=== PATIENT | female | born 1990 | race Caucasian/White ===

== ENCOUNTER 2017-02-02 12:41 | Emergency (ER) | payer BC ==
[~2017-02-02] VITALS: Ht 160 cm; Wt 54.4 kg
[~2017-02-02 12:41] MED LIST: DEPO-PROVE150 MG/1 M IM; NORCO 5-325 TA1 EACH PO; ONDANSETRON HCL8 MG PO
--- OUTSIDE RECORDS SUMMARY | 2017-02-02 12:45 | XMS ---
Demographics + + + | Address | [address] | | | [place] [address] | + + + | Preferred Language | Unknown | + + + | Marital Status | Unknown | + + + | Hindu Affiliation | Unknown | + + + | Race | Unknown | + + + | Ethnic Group | Unknown | + + + Author + + + | Author | [facility] | + + + | Organization | [facility] | + + + | Address | [address] | | | [place] [address] | + + + | Phone | | + + + Care Team Providers + + + + | Care Cna Per Diem Name | Role | Phone | + + + + Unavailable | Unavailable | + + + + PROBLEMS + + + + + + + + | Type | Condition | ICD9-CM | CAT01-TR | Onset | Condition | SNOMED | | | | Code | Code | Dates | Status | Code | + + + + + + + + | Assessment | Pneumonia | J18.9 | | Oct, | Active | [id number] | | | | | | 2016 | | | + + + + + + + + ALLERGIES + + + + +---------+ | Substance | Reaction | Event Type | Date | Status | + + + + +---------+ | N.K.D.A. | Unknown | Non Drug | Oct, | Unknown | | | | Allergy | | | + + + + +---------+ SOCIAL HISTORY No smoking Hx information available PLAN OF CARE + +---------+ | Activity | Details | + +---------+ +---+ | | +---+ + + + | Pending Test | X ray : Chest 2 views | + + + | | prn,Reason: | + + + VITAL SIGNS + + + + | Height | 61 in | 2016-11-15 | + + + + | Weight | 129.2 lbs | 2016-11-15 | + + + + | BMI | 24.41 kg/m2 | 2016-11-15 | + + + + | Temperature | 99.6 degrees Fahrenheit | 2016-11-15 | + + + + | Heart Rate | 108 /min | 2016-11-15 | + + + + | Blood pressure systolic | 112 mm Hg | 2016-11-15 | + + + + | Blood pressure diastolic | 73 mm Hg | 2016-11-15 | + + + + MEDICATIONS + + + + + + + +--------+ | Medicati | Instruct | Dosage | Frequenc | Start | End Date | Duration | Status | | on | ions | | y | Date | | | | + + + + + + + +--------+ | Azithrom | Orally | 2 | 24h | | | | Active | | ycin 250 | daily | tablets | | | | | | | MG | | q stat | | | | | | | | | then 1 | | | | | | | | | daily x | | | | | | | | | 4 days | | | | | | + + + + + + + +--------+ | Ventolin | Inhalati | 2 puffs | | 17 Apr, | | | Active | | HFA 108 | on every | | | 2016 | | | | | (90 | 4 hrs | | | | | | | | Base) | PRN | | | | | | | | MCG/ACT | wheezing | | | | | | | | | /SOB | | | | | | | + + + + + + + +--------+ | Rocephin | intramus | as | | 17 Apr, | 17 Apr, | | Active | | 1 GM | cularly | directed | | 2016 | 2016 | | | | | NOW | | | | | | | + + + + + + + +--------+ | Depo | | | | | | | Active | | Provera | | | | | | | | | IM | | | | | | | | + + + + + + + +--------+ RESULTS No Results PROCEDURES + + + + + | Procedure | Date Ordered | Related Diagnosis | Body Site | + + + + + | Ceftriaxone(Rocephi | November 15, 2016 | | | | n) 500mg/2ml | | | | + + + + + | INJECTION | November 15, 2016 | | | | INTRAMUSCULAR OR | | | | | SUBCUTANEOUS | | | | + + + + + | [facility] MED/CURRENT | November 15, 2016 | | | | MED MERGE | | | | + + + + + | Est Level III | November 15, 2016 | | | | Intermediate | | | | + + + + + | DOC MEDS VERIFIED | November 15, 2016 | | | | W/PT OR RE | | | | + + + + + IMMUNIZATIONS + + + + + | Vaccine | Route | Administration Date | Status | + + + + + | Ceftriaxzone(Roceph | IM Intramuscular | November 15, 2016 | Administered | | in)1gm | | | | + + + + +"
[2017-02-02] MEDS ORDERED: KETOROLAC TROME10 MG PO (14:12)
== END 2017-02-02 14:27 | disposition home or self-care (01) ==
LOC: ED 12:41
DX: N20.0 Calculus of kidney (principal); F17.200 Nicotine dependence, unspecified, uncomplicated; Z79.899 Other long term (current) drug therapy
CPT/HCPCS: 74176; 80053; 81001; 82150; 83690; 84703; 85025; 96361; 96374; 96375; 99284; J1885; J2405; J7030

== ENCOUNTER 2017-11-16 07:01 | Emergency (ER) | payer OTHER, BC ==
[~2017-11-16] VITALS: Ht 154.9 cm; Wt 60.3 kg
[~2017-11-16 07:01] MED LIST changes: +KETOROLAC TROME10 MG PO
[2017-11-16] MEDS ORDERED: IBUPROFEN200 MG PO (07:12)
[2017-11-16] MEDS ORDERED: NAPROSYN500 MG PO (08:15)
== END 2017-11-16 08:30 | disposition home or self-care (01) ==
LOC: ED 07:01
PROC: 2W3DX1Z Immobilization of Left Lower Arm using Splint (ICD-10-PCS; principal; 2017-11-16)
PROC: 2W3CX1Z Immobilization of Right Lower Arm using Splint (ICD-10-PCS; 2017-11-16)
DX: G56.03 Carpal tunnel syndrome, bilateral upper limbs (principal); M75.92 Shoulder lesion, unspecified, left shoulder; F17.200 Nicotine dependence, unspecified, uncomplicated
CPT/HCPCS: 29125; 73030; 99283

== ENCOUNTER 2020-04-02 19:13 | Emergency (ER) | payer SELFPAY ==
[~2020-04-02] VITALS: Ht 154.9 cm; Wt 61.2 kg
[~2020-04-02 19:13] MED LIST changes: +IBUPROFEN200 MG PO; +NAPROSYN500 MG PO; +ONDANSETRON ODT8 MG PO
[2020-04-02] MEDS ORDERED: ELIQUIS5 MG PO ×2 (22:55→23:13)
[2020-04-02] MEDS ORDERED: NORCO 5-325 TA1 EACH PO (22:55)
== END 2020-04-02 23:37 | disposition home or self-care (01) ==
LOC: ED 19:13
DX: I82.890 Acute embolism and thrombosis of other specified veins (principal); Z87.442 Personal history of urinary calculi; F17.200 Nicotine dependence, unspecified, uncomplicated; Z79.899 Other long term (current) drug therapy
CPT/HCPCS: 74177; 81001; 84703; 96361; 96375; 96376; 99284-25; J1170; J2405; J7030; Q9967

== ENCOUNTER 2020-10-15 03:05 | Emergency (ER) | payer OTHER ==
[~2020-10-15] VITALS: Ht 154.9 cm; Wt 62.0 kg
[~2020-10-15 03:05] MED LIST changes: +ELIQUIS5 MG PO; +FLUOXETINE HCL10 MG PO
--- OUTSIDE RECORDS SUMMARY | 2020-10-15 03:08 | XMS ---
PreManage Notification: JULIANA WYLIE [employer] Events No recent Security Events currently on file CRITERIA MET - [facility] - 2 Visits in 30 Days CARE PROVIDERS There are no care providers on record at this time. [facility] has no Care Guidelines for this patient. Jose Miguel VISIT COUNT (12 MO.) 3 [facility]3][facility]. TOTAL 3 NOTE: Visits indicate total known visits. ED/UCC VISIT TRACKING (12 MO.) 10/15/2020 03:05 [facility]3][facility] [place] TYPE: Emergency COMPLAINT: - ABDOMINAL AND RT SIDE PAIN 09/25/2020 16:26 [facility] [place] TYPE: Emergency COMPLAINT: - ABD PAIN DIAGNOSES: - Personal history of urinary calculi - Other intermediate school teacher (current) drug therapy - Nicotine dependence, unspecified, uncomplicated - Right lower quadrant pain 04/02/2020 19:14 [facility] [place] TYPE: Emergency COMPLAINT: - ABDOMINAL PAIN DIAGNOSES: - Personal history of urinary calculi - Generalized abdominal pain - Acute embolism and thrombosis of other specified veins - Other intermediate school teacher (current) drug therapy - Nicotine dependence, unspecified, uncomplicated INPATIENT VISIT TRACKING (12 MO.) No inpatient visits to display in this time frame [email or web address]
[2020-10-15] MEDS ORDERED: JENCYCLA0.35 MG PO (03:23)
== END 2020-10-15 05:08 | disposition home or self-care (01) ==
LOC: ED 03:05
DX: N23 Unspecified renal colic (principal); N21.0 Calculus in bladder; Z87.442 Personal history of urinary calculi; F17.200 Nicotine dependence, unspecified, uncomplicated
CPT/HCPCS: 74176; 80053; 81001; 83690; 84703; 85025; 96374; 96375; 99284-25; J1170; J2405; J7030